=== PATIENT | male | born 1970 | race Caucasian/White ===

== ENCOUNTER 2024-06-09 09:10 | Emergency (ER) | payer BC, SELFPAY ==
[2024-06-09 09:11] VITALS: BP 160/103
--- NOTE | 2024-06-09 09:30 | ED.GENMED ---
History of Present Illness
General
Chief Complaint: Back Pain
Source: patient
Exam Limitations: none
Time Seen by Provider: 06/09/24 09:16
History of Present Illness
History of Present Illness:
53-year-old male presents via EMS with severe lower back and right leg pain. He states the leg hurts more than the back. He states he had sciatic pain for the last 10 days but felt better yesterday. He worked out yesterday. His notes that
he was squatting a large amount of weight. Since then he had pain in the right leg that radiates from the buttock down the posterior thigh. He denies any bowel or bladder dysfunction. No perianal anesthesia. No fever. Today he is taking 1000 mg
of Tylenol, 800 mg of ibuprofen, baclofen and 1 oxycodone without relief.
Phy Exam
Physical Exam
Physical Exam:
General: Uncomfortable appearing male no acute respiratory distress
HEENT: Normocephalic atraumatic
Musculoskeletal exam: No significant pain with palpation over the lumbar spine but he is tender over the right superior buttock and posterior thigh
Neurologic: Good sensation bilateral lower extremities bilateral patellar reflexes plus. Positive straight leg raise right lower extremity reproducing pain down the right leg
Vascular: Eliquis pulse right foot
Course
Orders/Labs/Results
Orders:
Orders
06/09/24 09:24
Dexamethasone Sod Phosphate [Decadron] 10 mg IV NOW STA
diazePAM [Valium Injection] 5 mg IV NOW STA
06/09/24 09:25
HYDROmorphone [Dilaudid] 0.5 mg IV NOW STA
06/09/24 09:42
Ondansetron Injectable [Zofran] 4 mg .ROUTE .STK-MED ONE
06/09/24 09:43
Ondansetron Injectable [Zofran] 4 mg IV NOW STA
Vital Signs
Initial and Last Documented VS:
Initial Vital Signs
Temp Pulse Resp BP Pulse Ox
97.9 F 95 20 160/103 97
06/09/24 09:11 06/09/24 09:11 06/09/24 09:11 06/09/24 09:11 06/09/24 09:11
Last Documented Vital Signs
Temp Pulse Resp BP Pulse Ox
97.9 F 95 20 140/91 95
06/09/24 09:11 06/09/24 09:11 06/09/24 09:11 06/09/24 10:00 06/09/24 10:00
MDM/Problems Addressed
Differential Diagnosis Includes:
Low back pain with more right leg pain. Likely radiculopathy. No red flags to suggest cauda equina. No fever to suggest infectious source. There is no tenderness on palpation of lumbar spine.
Oral medications not helping at home will try IV medic pain. At this point given radiculopathy and lack of findings of cauda equina, no obvious urgent need for MRI imaging at this time
*Critical Care Note
Total Time (30-74mins, 75-104mins- exclusive of procedures): Not Applicable
Update Note
Update Note:
Patient reevaluated feeling much better pain is improved. Suspect radiculopathy. Patient comfortable going home will prescribe steroids and Valium. Will follow-up with back pain specialist
ED Attending Note
-
Portions of this chart may have been created with voice recognition software.� Occasional wrong word or��sound alike� substitutions may have occurred due to the inherent limitations of voice recognition software.
Discharge Plan
Departure
Patient Disposition: Home (Routine Discharge)
Date of Disposition: 06/09/24
Time of Disposition: 11:28
Patient with high blood pressure during this ER visit?: No
Discharge Problem:
Acute lumbar radiculopathy
Instructions: Radiculopathy (DC)
Prescriptions:
New
prednisone 10 mg Tablet
See Rx Instructions .ROUTE .COMPLEX Qty: 30 0RF
Rx Instructions:
Take By Mouth:
40 mg daily x3 days, 30 mg daily x3 days,
20 mg daily x3 days, 10 mg daily x3 days.
diazepam [Valium] 5 mg tablet
5 mg PO TID PRN (Reason: muscle spasm) Qty: 10 0RF
No Action
multivitamin Tablet
1 tab PO DAILY
ketotifen fumarate 0.025 % (0.035 %) drops
1 drp BOTH EYES BIDPRN PRN (Reason: allergy symptoms)
sertraline 100 mg tablet
100 mg PO DAILY
sertraline 100 mg tablet
50 mg PO HS
fexofenadine 180 mg tablet
180 mg PO DAILYPRN PRN (Reason: allergy symptoms )
acetaminophen 500 mg Tablet
1,000 mg PO TIDPRN PRN (Reason: pain)
baclofen 20 mg tablet
20 mg PO QIDPRN PRN (Reason: muscle spasm/pain )
Referrals:
Donna Henderson MD [Family Provider] -
Curtis Matson MD [Active] -
Activity Restrictions/Additional Instructions:
Rest. Use medicine as directed. Avoid heavy lifting. Follow-up with back pain specialist. Return if worse
Interventions
Interventions:
*Risk Screen - Suicide Last Done: 06/09/24 09:11
*General Assessment Last Done: 06/09/24 09:11
*Neglect/Abuse Screening Last Done: 06/09/24 09:11
Discharge Date and Time
Print Language: CZECH
[2024-06-09] MEDS: VALIUM INJECTION 5 MG IV (09:35)
[2024-06-09] MEDS: DILAUDID 0.5 MG IV (09:35)
[2024-06-09] MEDS: DECADRON 10 MG IV (09:35)
[2024-06-09] MEDS: ZOFRAN 4 MG IV (09:46)
[2024-06-09 10:00] VITALS: BP 140/91
[2024-06-09 11:00] VITALS: BP 142/90
== END 2024-06-09 11:30 | disposition home or self-care (01) ==
LOC: EMR 09:10
PROVIDERS: EMERGENCY PHYSICIAN Emergency Medicine; FAMILY PHYSICIAN Family Medicine
DX: M54.16 Radiculopathy, lumbar region (principal)
CPT/HCPCS: 99284; 96374; 96375 ×3